=== PATIENT | male | born 1985 | race African-American/Black ===

== ENCOUNTER → 2020-11-29 | Outpatient (CLI) | payer OTHER ==
--- NOTE | 2020-11-30 09:45 | EXE ---
[place] [address] STRESS ECHOCARDIOGRAM Name: RONEL MAXWELL Room: [facility]#: [id number] Admission: 11/29/20 Attend Phys: Amauri Chicas, Discharge: Date of : 87 Date of Service: 11/30/20 0945 Report #: [id number] THIS REPORT FOR: cc: Ld Chilel Vincent R. DO Liston,Amauri Mix MD [facility] ~ APPROVED REPORT Study performed: 11/29/2020 15:10:06 Exam: Stress Echocardiogram Indication: Dyspnea Patient Location: Out-Patient Stress Nurse: Sharon Tucker RN Supervising Physician: Estrada Smart MD Status: routine Ht: 5 ft 11 in HR: 70 bpm BP: 108/78 mmHg Rhythm: NSR Medical History Medical History: Hyperlipidemia Allergies: No known drug allergies Procedure The patient underwent an Exercise Stress Test using the Georgi Protocol. Blood pressure, heart rate, and EKG were monitored. An Echocardiogram was performed by forensic science technician in four stages in quad fashion. At peak stress, four selected images were obtained and placed side by side with resting images for comparison. Stress Test Details Stress Test: Exercise stress testing was performed using a Georgi protocol. HR Resting HR: 70 bpm Max Heart Rate (APMHR): 186 bpm Max HR Achieved: 194 bpm Target HR (85% APMHR): 158 bpm % of APMHR: 104 Recovery HR: 111 bpm HR response to stress: Normal HR response to stress BP Resting BP: 108/78 [place] [address] STRESS ECHOCARDIOGRAM Name: RONEL MAXWELL Room: [facility]#: [id number] Admission: 11/29/20 Attend Phys: Amauri Chicas, Discharge: Date of : 87 Date of Service: 11/30/20 0945 Report #: [id number] Max BP: 190/78 mmHg Recovery BP: 138/70 mmHg BP response to stress: Normal blood pressure response to stress. ECG Resting ECG: Sinus Rhythm Stress ECG: Sinus Tachycardia ST Change: None Arrhythmia: None Recovery ECG: Sinus Rhythm Recovery ST Change: None Recovery Arrhythmia: None Clinical Reason for Termination: Maximal effort, Completed protocol Exercise duration: 7 min 20 sec Highest Stage Achieved: Stage 3: 3.4 mph at 14% grade. Exercise capacity: 9.1 METs The patient exhibited limited exercise tolerance. He did achieve target heart rate. The patient had no significant cardiac symptoms. Stress ECG Conclusion The baseline twelve-lead EKG shows sinus rhythm without significant ST segment or T wave abnormality. EKGs obtained during and post exercise show sinus rhythm and sinus tachycardia with no significant ST segment or T wave changes when compared to baseline. There were no stress-induced arrhythmias. Pre-Stress Echo The resting Echocardiogram showed normal left ventricular contractility with an estimated Ejection Fraction of about 55-60%. The resting echocardiogram demonstrated normal wall motion in all wall segments. Post-Stress Echo The stress Echocardiogram showed normal left ventricular contractility with an estimated Ejection Fraction of about >70%. Compared to rest, there were no stress-induced wall motion abnormalities. Conclusion Clinical Response: Non-ischemic Exercise Capacity: Below Average [facility] [address] [place] [address] STRESS ECHOCARDIOGRAM Name: MARIO MAXWELLUS Room: [facility]#: [id number] Admission: 11/29/20 Attend Phys: Amauri Chicas, Discharge: Date of : 87 Date of Service: 11/30/20944 Report #: [id number] Stress ECG Response: Non-ischemic Stress Echo Images: Non-ischemic <ELECTRONICALLY SIGNED> By: Amauri Chicas MD, FACC 11/30/20944 4 4 Amauri Chicas MD, FACC /INF
== END ==
LOC: M.CRD 14:48
PROVIDERS: ATTEND Internal Medicine Cardiovascular Disease
DX: R06.00 Dyspnea, unspecified (principal)